=== PATIENT | female | born 1960 | race African-American/Black ===

== ENCOUNTER 2021-06-29 09:42 | Emergency (ER) | payer MEDICAID, OTHER ==
[~2021-06-29] VITALS: Ht 160 cm; Wt 86.6 kg
[2021-06-29 10:43] LABS: Albumin 3.1 g/dL (3.4-5.0); Calcium 8.9 mg/dL (8.5-10.1); Magnesium 2.5 mg/dL (1.6-2.6); Potassium 4.4 mmol/L (3.5-5.1)
[2021-06-29 10:44] LABS: Basophils # (auto) 0.1 10 ^3/uL (0-0.2); Basophils % (auto) 1.1 % (0.0-2.0); Eosinophils # (auto) 0 10 ^3/uL (0-0.8); Eosinophils % (auto) 0.1 % (0.0-7.0); Hematocrit 43.2 % (36.0-46.0); Hemoglobin 14.3 g/dL (12.2-16.2); Lymphocytes # (auto) 1.2 10 ^3/uL (0.4-5.4); Lymphocytes % (auto) 20.8 % (10.0-50.0); Mean Corpuscular Hemoglobin 29.1 pg (28.0-32.0); Mean Corpuscular Volume 88.2 fL (80.0-100.0); Monocytes # (auto) 0.6 10 ^3/uL (0-1.3); Monocytes % (auto) 10.6 % (0.0-12.0); Neutrophils # (auto) 3.9 10 ^3/uL (1.6-8.6); Neutrophils % (auto) 67.4 % (37.0-80.0); Nucleated Red Blood Cells % 0.1 %; Red Blood Cells 4.89 10^6/uL (4.0-5.20); Red Cell Distribution Width 14.8 % (11.8-14.3); White Blood Cell 5.8 10^3/uL (4.4-10.8)
[2021-06-29 10:47] LABS: BUN/Creatinine Ratio 13.2; Bilirubin, Total 0.6 mg/dL (0.2-1.0); Total Protein 7.6 g/dL (6.4-8.2)
[2021-06-29 14:40] LABS: Urine Bacteria FEW /hpf (None Seen); Urine Blood Negative /uL (Negative); Urine Hyaline Cast FEW /lpf (0 - 2); Urine Mucus FEW (None Seen); Urine Specific Gravity 1.026 (1.001-1.035); Urine WBC 39 /hpf (0 - 5)
[2021-06-29] MEDS ORDERED: ONDANSETRON ODT 4 MG TAB PO ONE (15:30)
[2021-06-29] MEDS ORDERED: CEPHALEXIN 250 MG CAP PO ONE (15:30)
[2021-06-29 15:52] VITALS: BP 114/69
== END 2021-06-29 15:54 | disposition home or self-care (01) ==
LOC: ER 09:42
DX: N39.0 Urinary tract infection, site not specified (principal); R42 Dizziness and giddiness; R19.7 Diarrhea, unspecified; E11.9 Type 2 diabetes mellitus without complications
CPT/HCPCS: 36415; 80053; 81001; 83605; 83690; 83735; 85025; 87086; 93005; 99284; Q0162

== ENCOUNTER 2021-07-04 08:32 | Inpatient (IN) | payer MEDICAID ==
[~2021-07-04] VITALS: Ht 160 cm; Wt 88.4 kg
[2021-07-04 09:17] LABS: Basophils # (auto) 0.1 10 ^3/uL (0-0.2); Eosinophils # (auto) 0 10 ^3/uL (0-0.8); Lymphocytes # (auto) 0.8 10 ^3/uL (0.4-5.4); Lymphocytes % (auto) 11.3 % (10.0-50.0); Mean Corpuscular Hemoglobin 28.9 pg (28.0-32.0); Mean Corpuscular Hgb Conc. 33.3 g/dL (32.0-36.0); Mean Corpuscular Volume 86.8 fL (80.0-100.0); Monocytes # (auto) 0.3 10 ^3/uL (0-1.3); Neutrophils # (auto) 5.8 10 ^3/uL (1.6-8.6); Neutrophils % (auto) 83.7 % (37.0-80.0); Red Cell Distribution Width 14.7 % (11.8-14.3)
[2021-07-04 09:37] LABS: Alanine Aminotransferase 24 U/L (13-56); Albumin 2.3 g/dL (3.4-5.0); Anion Gap 10 (5-15); Aspartate Aminotransferase 17 U/L (15-37); BUN/Creatinine Ratio 15.4; Blood Urea Nitrogen 12 mg/dL (7-18); Calcium 8.4 mg/dL (8.5-10.1); Carbon Dioxide 24 mmol/L (21-32); Chloride 101 mmol/L (98-107); GFR African American 97 mL/min; GFR Non-African American 80 mL/min; Glucose 218 mg/dL (74-106); Potassium 4.4 mmol/L (3.5-5.1); Sodium 135 mmol/L (136-145)
[2021-07-04 09:42] LABS: Alkaline Phosphatase 77 U/L (45-117); Bilirubin, Total 0.5 mg/dL (0.2-1.0); Total Protein 6.9 g/dL (6.4-8.2)
[2021-07-04] MEDS ORDERED: DexAMETHasone SOD PHOS 10MG/1ML VIAL INJ IV ONE (11:15)
[2021-07-04] MEDS ORDERED: cefTRIAXone 1GM/50ML D5W 50 ML IV ONE (11:15)
[2021-07-04] MEDS ORDERED: AZITHROMYCIN 500MG/ 250ML 250 ML IV ONE (11:15)
[2021-07-04] MEDS ORDERED: REMDESIVIR PER PHARMACY 0 ML IV SCH (11:45)
[2021-07-04] MEDS ORDERED: MORPHINE SULFATE INJECTION 2 MG/ML SYRG IV PRN (11:45)
[2021-07-04] MEDS ORDERED: NITROGLYCERIN 0.4 MG SL TAB SL PRN (11:45)
[2021-07-04] MEDS ORDERED: LACTULOSE 20Gm/30ML SOLN PO PRN (12:15)
[2021-07-04] MEDS ORDERED: ACETAMINOPHEN 500 MG TAB PO PRN (12:15)
[2021-07-04] MEDS ORDERED: PROMETHAZINE HCL 25 MG/ML 1ML IV PRN (12:15)
[2021-07-04] MEDS ORDERED: DEXTROSE (50%) 50ML SYRG IV PRN (12:15)
[2021-07-04] MEDS ORDERED: REMDESIVIR 200 MG in NS 210ml LOADING DOSE ADULT IV ONE (15:00)
[2021-07-04] MEDS: ACCU-CHEK COMFORT CURVE STRIP VI SCH ×2 (17:28→22:10)
[2021-07-04] MEDS: InsuLIN REG 1unit/0.01ml Soln (100units/ml) SC SCH ×2 (17:30→22:09)
[2021-07-04] MEDS: BUDESONIDE (INHALATION) 180 MCG IH IN SCH (18:49)
[2021-07-04] MEDS: ALBUTEROL SULF HFA 90MCG INH 200DOSE IN PRN (18:50)
[2021-07-04] MEDS: FLORASTOR (S. BOULARDII) 250 MG CAP PO SCH (22:09)
[2021-07-04] MEDS: ENOXAPARIN SOD 40 MG/0.4 ML SYRINGE SC SCH (22:09)
[2021-07-04 23:56] LABS: Urine Bacteria FEW /hpf (None Seen); Urine Blood Negative /uL (Negative); Urine Mucus FEW (None Seen); Urine Specific Gravity 1.021 (1.001-1.035); Urine WBC 3 /hpf (0 - 5)
[2021-07-05] VITALS (7 sets, daily range): BP systolic 98–102; BP diastolic 48–78
[2021-07-05] MEDS ORDERED: ASPI-231 PO (05:41)
[2021-07-05] MEDS ORDERED: GLIP2.5T28 PO (05:41)
[2021-07-05] MEDS ORDERED: INSU1INJ19 SC (05:41)
[2021-07-05] MEDS ORDERED: ATOR20TA50 PO (05:41)
[2021-07-05] MEDS ORDERED: METF-370 PO (05:41)
[2021-07-05 05:45] LABS: Basophils # (auto) 0 10 ^3/uL (0-0.2); Basophils % (auto) 0.3 % (0.0-2.0); Eosinophils # (auto) 0 10 ^3/uL (0-0.8); Hematocrit 34.5 % (36.0-46.0); Hemoglobin 11.6 g/dL (12.2-16.2); Lymphocytes # (auto) 0.9 10 ^3/uL (0.4-5.4); Lymphocytes % (auto) 15.8 % (10.0-50.0); Mean Corpuscular Hemoglobin 29.7 pg (28.0-32.0); Mean Corpuscular Hgb Conc. 33.6 g/dL (32.0-36.0); Mean Corpuscular Volume 88.4 fL (80.0-100.0); Monocytes # (auto) 0.4 10 ^3/uL (0-1.3); Monocytes % (auto) 6.5 % (0.0-12.0); Neutrophils # (auto) 4.7 10 ^3/uL (1.6-8.6); Neutrophils % (auto) 77.4 % (37.0-80.0); Red Blood Cells 3.91 10^6/uL (4.0-5.20); Red Cell Distribution Width 14.9 % (11.8-14.3)
[2021-07-05 05:59] LABS: Potassium 4.9 mmol/L (3.5-5.1)
[2021-07-05 06:04] LABS: BUN/Creatinine Ratio 21.5; Bilirubin, Total 0.4 mg/dL (0.2-1.0); Calcium 8.7 mg/dL (8.5-10.1)
[2021-07-05] MEDS: ACCU-CHEK COMFORT CURVE STRIP VI SCH ×4 (06:15→21:26)
[2021-07-05] MEDS: InsuLIN REG 1unit/0.01ml Soln (100units/ml) SC SCH ×4 (06:18→21:30)
[2021-07-05] MEDS: ALBUTEROL SULF HFA 90MCG INH 200DOSE IN PRN ×2 (06:21→22:04)
[2021-07-05] MEDS: BUDESONIDE (INHALATION) 180 MCG IH IN SCH ×2 (06:22→22:04)
[2021-07-05] MEDS: ZINC SULFATE 220mg CAP or TAB PO SCH (08:24)
[2021-07-05] MEDS: ASCORBIC ACID 1,000 MG TAB PO SCH (08:24)
[2021-07-05] MEDS: IVERMECTIN 3 MG TAB PO SCH (08:25)
[2021-07-05] MEDS: FLORASTOR (S. BOULARDII) 250 MG CAP PO SCH ×2 (08:25→21:31)
[2021-07-05] MEDS: CHOLECALCIFEROL (VITD3) 2,000 UNIT CAP/TAB PO SCH (08:25)
[2021-07-05] MEDS: ENOXAPARIN SOD 40 MG/0.4 ML SYRINGE SC SCH ×2 (08:26→21:31)
[2021-07-05] MEDS: DexAMETHasone SOD PHOS 10MG/1ML VIAL INJ IV SCH (08:26)
[2021-07-05] MEDS: cefTRIAXone 1GM/50ML D5W 50 ML IV SCH (08:26)
[2021-07-05] MEDS: AZITHROMYCIN 500MG/ 250ML 250 ML IV SCH (08:26)
[2021-07-05] MEDS ORDERED: traZODone HCL 50 MG TAB PO PRN (14:00)
[2021-07-05] MEDS: REMDESIVIR 100mg 100 MG in SODIUM CHL 0.9% 230 ML IV SCH (15:20)
[2021-07-05] MEDS: ALPRAZolam 0.5 MG TAB PO PRN (18:09)
[2021-07-06 05:00] VITALS: BP 103/54
[2021-07-06] MEDS: ALPRAZolam 0.5 MG TAB PO PRN (05:59)
[2021-07-06] MEDS: ACCU-CHEK COMFORT CURVE STRIP VI SCH ×4 (06:00→22:05)
[2021-07-06] MEDS: InsuLIN REG 1unit/0.01ml Soln (100units/ml) SC SCH ×4 (06:02→22:22)
[2021-07-06] MEDS: BUDESONIDE (INHALATION) 180 MCG IH IN SCH ×2 (07:01→21:10)
[2021-07-06] MEDS: ALBUTEROL SULF HFA 90MCG INH 200DOSE IN PRN (07:02)
[2021-07-06 07:30] LABS: Calcium 8.9 mg/dL (8.5-10.1); Potassium 4.8 mmol/L (3.5-5.1)
[2021-07-06 07:33] LABS: Albumin 1.8 g/dL (3.4-5.0); BUN/Creatinine Ratio 26.8
[2021-07-06 07:36] LABS: Bilirubin, Total 0.3 mg/dL (0.2-1.0); Total Protein 5.8 g/dL (6.4-8.2)
[2021-07-06 09:00] VITALS: BP 90/49
[2021-07-06] MEDS: IVERMECTIN 3 MG TAB PO SCH (09:39)
[2021-07-06] MEDS: ASCORBIC ACID 1,000 MG TAB PO SCH (09:39)
[2021-07-06] MEDS: ZINC SULFATE 220mg CAP or TAB PO SCH (09:39)
[2021-07-06] MEDS: cefTRIAXone 1GM/50ML D5W 50 ML IV SCH (09:40)
[2021-07-06] MEDS: DexAMETHasone SOD PHOS 10MG/1ML VIAL INJ IV SCH (09:40)
[2021-07-06] MEDS: AZITHROMYCIN 500MG/ 250ML 250 ML IV SCH (09:40)
[2021-07-06] MEDS: ENOXAPARIN SOD 40 MG/0.4 ML SYRINGE SC SCH ×2 (09:40→22:17)
[2021-07-06] MEDS: FLORASTOR (S. BOULARDII) 250 MG CAP PO SCH ×2 (09:40→22:17)
[2021-07-06] MEDS: CHOLECALCIFEROL (VITD3) 2,000 UNIT CAP/TAB PO SCH (09:40)
[2021-07-06] MEDS: traMADol HCL 50 MG TAB PO PRN (09:41)
[2021-07-06 13:00] VITALS: BP 118/62
[2021-07-06] MEDS: REMDESIVIR 100mg 100 MG in SODIUM CHL 0.9% 230 ML IV SCH (15:51)
[2021-07-06 17:00] VITALS: BP 97/51
[2021-07-06] MEDS ORDERED: InsuLIN REG 1unit/0.01ml Soln (100units/ml) SC ONE (18:15)
[2021-07-06 21:31] VITALS: BP 104/59
[2021-07-07 05:30] VITALS: BP 124/61
[2021-07-07 06:00] VITALS: BP 130/51
[2021-07-07 06:12] LABS: Albumin 1.9 g/dL (3.4-5.0); BUN/Creatinine Ratio 22.7; Calcium 8.8 mg/dL (8.5-10.1); Potassium 4.1 mmol/L (3.5-5.1)
[2021-07-07 06:15] LABS: Bilirubin, Total 0.4 mg/dL (0.2-1.0); Total Protein 5.9 g/dL (6.4-8.2)
[2021-07-07] MEDS: ACCU-CHEK COMFORT CURVE STRIP VI SCH ×4 (06:36→22:46)
[2021-07-07] MEDS: InsuLIN REG 1unit/0.01ml Soln (100units/ml) SC SCH ×4 (06:38→23:01)
[2021-07-07] MEDS: traMADol HCL 50 MG TAB PO PRN ×2 (06:39→15:38)
[2021-07-07] MEDS: ALBUTEROL SULF HFA 90MCG INH 200DOSE IN PRN ×2 (07:54→18:47)
[2021-07-07] MEDS: BUDESONIDE (INHALATION) 180 MCG IH IN SCH ×2 (07:55→18:47)
[2021-07-07] MEDS: cefTRIAXone 1GM/50ML D5W 50 ML IV SCH (08:50)
[2021-07-07] MEDS: ZINC SULFATE 220mg CAP or TAB PO SCH (08:50)
[2021-07-07] MEDS: AZITHROMYCIN 500MG/ 250ML 250 ML IV SCH (08:50)
[2021-07-07] MEDS: DexAMETHasone SOD PHOS 10MG/1ML VIAL INJ IV SCH (08:50)
[2021-07-07] MEDS: IVERMECTIN 3 MG TAB PO SCH (08:51)
[2021-07-07] MEDS: FLORASTOR (S. BOULARDII) 250 MG CAP PO SCH ×2 (08:51→22:35)
[2021-07-07] MEDS: ASCORBIC ACID 1,000 MG TAB PO SCH (08:51)
[2021-07-07] MEDS: CHOLECALCIFEROL (VITD3) 2,000 UNIT CAP/TAB PO SCH (08:51)
[2021-07-07] MEDS: ENOXAPARIN SOD 40 MG/0.4 ML SYRINGE SC SCH ×2 (08:52→22:37)
[2021-07-07 09:00] VITALS: BP 140/66
[2021-07-07] MEDS: ALPRAZolam 0.5 MG TAB PO PRN ×2 (09:16→22:39)
[2021-07-07] MEDS: glipiZIDE 5 MG TAB PO SCH (11:50)
[2021-07-07 13:00] VITALS: BP 119/68
[2021-07-07] MEDS: REMDESIVIR 100mg 100 MG in SODIUM CHL 0.9% 230 ML IV SCH (15:15)
[2021-07-07 17:00] VITALS: BP 122/74
[2021-07-07 21:54] VITALS: BP 112/69
[2021-07-07] MEDS: DexAMETHasone SOD PHOS 4 MG/1ML SDV INJ IV SCH (22:37)
[2021-07-07] MEDS: INSULIN LANTUS (GLARGINE) 1 /0.01ml (100units/ml) SC SCH (22:57)
[2021-07-08] VITALS (7 sets, daily range): BP systolic 95–123; BP diastolic 52–72
[2021-07-08 05:40] LABS: Albumin 2.2 g/dL (3.4-5.0); Calcium 8.8 mg/dL (8.5-10.1); Potassium 4.2 mmol/L (3.5-5.1)
[2021-07-08 05:45] LABS: BUN/Creatinine Ratio 20.5; Bilirubin, Total 0.4 mg/dL (0.2-1.0); Total Protein 6.1 g/dL (6.4-8.2)
[2021-07-08] MEDS: ACCU-CHEK COMFORT CURVE STRIP VI SCH ×4 (06:00→21:18)
[2021-07-08] MEDS: ALBUTEROL SULF HFA 90MCG INH 200DOSE IN PRN ×2 (06:15→22:14)
[2021-07-08] MEDS: BUDESONIDE (INHALATION) 180 MCG IH IN SCH ×2 (06:15→22:14)
[2021-07-08] MEDS: InsuLIN REG 1unit/0.01ml Soln (100units/ml) SC SCH ×4 (06:56→21:45)
[2021-07-08] MEDS: ALPRAZolam 0.5 MG TAB PO PRN ×2 (06:57→21:45)
[2021-07-08] MEDS: cefTRIAXone 1GM/50ML D5W 50 ML IV SCH (09:37)
[2021-07-08] MEDS: DexAMETHasone SOD PHOS 4 MG/1ML SDV INJ IV SCH ×2 (09:38→21:17)
[2021-07-08] MEDS: ENOXAPARIN SOD 40 MG/0.4 ML SYRINGE SC SCH ×2 (09:39→21:18)
[2021-07-08] MEDS: ZINC SULFATE 220mg CAP or TAB PO SCH (09:41)
[2021-07-08] MEDS: FLORASTOR (S. BOULARDII) 250 MG CAP PO SCH ×2 (09:41→21:17)
[2021-07-08] MEDS: glipiZIDE 5 MG TAB PO SCH (09:41)
[2021-07-08] MEDS: IVERMECTIN 3 MG TAB PO SCH (09:42)
[2021-07-08] MEDS: ASCORBIC ACID 1,000 MG TAB PO SCH (09:42)
[2021-07-08] MEDS: CHOLECALCIFEROL (VITD3) 2,000 UNIT CAP/TAB PO SCH (09:42)
[2021-07-08] MEDS: AZITHROMYCIN 500MG/ 250ML 250 ML IV SCH (11:21)
[2021-07-08] MEDS: REMDESIVIR 100mg 100 MG in SODIUM CHL 0.9% 230 ML IV SCH (15:06)
[2021-07-08] MEDS: INSULIN LANTUS (GLARGINE) 1 /0.01ml (100units/ml) SC SCH (21:44)
[2021-07-09 05:00] VITALS: BP 105/53
[2021-07-09] MEDS: ALBUTEROL SULF HFA 90MCG INH 200DOSE IN PRN (06:36)
[2021-07-09] MEDS: BUDESONIDE (INHALATION) 180 MCG IH IN SCH (06:36)
[2021-07-09] MEDS: ACCU-CHEK COMFORT CURVE STRIP VI SCH ×2 (07:02→11:44)
[2021-07-09] MEDS: InsuLIN REG 1unit/0.01ml Soln (100units/ml) SC SCH ×2 (07:03→11:53)
[2021-07-09 09:00] VITALS: BP 128/57
[2021-07-09] MEDS: cefTRIAXone 1GM/50ML D5W 50 ML IV SCH (09:00)
[2021-07-09] MEDS: FLORASTOR (S. BOULARDII) 250 MG CAP PO SCH (09:01)
[2021-07-09] MEDS: ASCORBIC ACID 1,000 MG TAB PO SCH (09:01)
[2021-07-09] MEDS: CHOLECALCIFEROL (VITD3) 2,000 UNIT CAP/TAB PO SCH (09:01)
[2021-07-09] MEDS: ENOXAPARIN SOD 40 MG/0.4 ML SYRINGE SC SCH (09:01)
[2021-07-09] MEDS: glipiZIDE 5 MG TAB PO SCH (09:02)
[2021-07-09] MEDS: IVERMECTIN 3 MG TAB PO SCH (09:04)
[2021-07-09] MEDS: AZITHROMYCIN 500MG/ 250ML 250 ML IV SCH (09:05)
[2021-07-09] MEDS: ZINC SULFATE 220mg CAP or TAB PO SCH (10:00)
[2021-07-09] MEDS: DexAMETHasone SOD PHOS 4 MG/1ML SDV INJ IV SCH (10:19)
[2021-07-09 13:00] VITALS: BP 102/60
[2021-07-09] MEDS ORDERED: LORazepam 2MG/ML-1ML VIAL IV ONE (13:00)
[2021-07-09] MEDS ORDERED: IOHEXOL 350 MG/ML 100ML IJ ONE (13:59)
== END 2021-07-09 17:45 | disposition home health service (06) | DRG 137 ==
LOC: EDBD 08:32 → ER 08:32 → TELE 11:38 → TELE-EAST 23:22
PROVIDERS: ADMIT Internal Medicine; ATTEND Internal Medicine
PROC: XW033E5 Introduction of Remdesivir Anti-infective into Peripheral Vein, Percutaneous Approach, New Technology Group 5 (ICD-10-PCS; principal; 2021-07-04)
DX: U07.1 COVID-19 (principal); J96.01 Acute respiratory failure with hypoxia; J12.82 Pneumonia due to coronavirus disease 2019; N39.0 Urinary tract infection, site not specified; J98.11 Atelectasis; E11.65 Type 2 diabetes mellitus with hyperglycemia; I10 Essential (primary) hypertension; E66.9 Obesity, unspecified; Z68.31 Body mass index [BMI] 31.0-31.9, adult; Z79.4 Long term (current) use of insulin; Z79.82 Long term (current) use of aspirin; Z82.49 Family history of ischemic heart disease and other diseases of the circulatory system; Z83.3 Family history of diabetes mellitus; Z87.11 Personal history of peptic ulcer disease
CPT/HCPCS: 36415; 71045; 71275; 80053; 81001; 82728; 82962; 83036; 83605; 84484; 85025; 85379; 87040; 87081; 87426; 93005; 94640; 99291; G0378; J0696; J1100; J1815